=== PATIENT | male | born 1990 | race Caucasian/White ===

== ENCOUNTER 2017-01-07 19:11 | Emergency (ER) | payer OTHER ==
[~2017-01-07] VITALS: Ht 172.7 cm; Wt 81.6 kg
--- NOTE | 2017-01-07 19:11 | NUR ---
PT BIB [facility], PREBOOK. TAKEN TO OF
[2017-01-07 19:17] VITALS: BP 127/83
--- NOTE | 2017-01-07 19:38 | NUR ---
Patient being evaluated by physician
[2017-01-07 19:42] VITALS: BP 127/83
--- NOTE | 2017-01-07 19:42 | NUR ---
Patient discharged with v/s stable. Written and verbal after care instructions given and explained BY DR. CLEMENS. Patient verbalized understanding.[facility] with in custody. All questions addressed prior to discharge. Advised to follow up with PMD.
--- NOTE | 2017-01-07 19:42 | NUR ---
PATIENT BIB [facility] POLICE DEPT. PATIENT EXAMINED BY DR. DR CLEMENS. PATIENT MEDICALLY CLEARED AND RELEASED IN CUSTODY IN STABLE CONDITION. ORIGINAL PRE-BOOK FORM GIVEN TO [facility] OFFICER .
== END 2017-01-07 19:42 ==
LOC: MED 19:11
DX: Z02.89 Encounter for other administrative examinations (principal)
CPT/HCPCS: 99283